=== PATIENT | male | born 1965 | race African-American/Black ===

== ENCOUNTER 2018-02-13 06:37 | Emergency (ER) | payer OTHER ==
[~2018-02-13] VITALS: Ht 193 cm; Wt 104.3 kg
[2018-02-13] MEDS ORDERED: KEFLEX500 M1 PO (08:14)
[2018-02-13] MEDS ORDERED: IBUPROFEN 400400 M2 PO (08:14)
[2018-02-13 09:31] VITALS: BP 131/96
== END 2018-02-13 09:34 | disposition home or self-care (01) ==
LOC: ER 06:37
PROC: 0H9GXZZ Drainage of Left Hand Skin, External Approach (ICD-10-PCS; principal; 2018-02-13)
DX: L02.512 Cutaneous abscess of left hand (principal); S60.312A Abrasion of left thumb, initial encounter; I10 Essential (primary) hypertension; E11.9 Type 2 diabetes mellitus without complications

== ENCOUNTER 2018-02-17 17:58 | Emergency (ER) | payer OTHER ==
[~2018-02-17] VITALS: Ht 193 cm; Wt 104.3 kg
[~2018-02-17 17:58] MED LIST: IBUPROFEN 400400 M2 PO; KEFLEX500 M1 PO
[2018-02-17] MEDS ORDERED: HYDROCHLOROTHIA25 M1 PO (18:06)
[2018-02-17] MEDS ORDERED: NORCO 5-325 TA1 EACH PO (20:49)
[2018-02-17] MEDS ORDERED: CLINDAMYCIN HC300 MG PO (20:49)
[2018-02-17 21:07] VITALS: BP 115/79
== END 2018-02-17 21:08 | disposition home or self-care (01) ==
LOC: ER 17:58
DX: L03.012 Cellulitis of left finger (principal)